=== PATIENT | female | born 1955 | race Caucasian/White ===

== ENCOUNTER 2021-02-19 00:13 | Emergency (ER) | payer MEDICARE ==
[~2021-02-19] VITALS: Ht 162.6 cm; Wt 79.8 kg
[2021-02-19] MEDS ORDERED: SODIUM CHLORIDE 0.9% 1000ML 1,000 ML IV STA (00:20)
[2021-02-19] MEDS ORDERED: ONDANSETRON HCL INJ 2MG/ML 2ML 2 MG/ML VIAL IV STA (00:20)
[2021-02-19] MEDS ORDERED: KETOROLAC TROMETHAMINE 30 MG/ML VIAL IV STA (00:20)
[2021-02-19] MEDS ORDERED: TAMSULOSIN HCL 0.4 MG CAP PO STA (00:22)
[2021-02-19 00:31] LABS: BASOPHILS % 0.5 % (0.0-1.0); EOSINOPHILS # (AUTO) 0.1 (0.0-0.4); EOSINOPHILS % 1.4 % (0.0-6.0); HEMATOCRIT 42.2 % (34.2-44.1); LYMPHOCYTES # (AUTO) 2.3 (1.0-3.2); LYMPHOCYTES % 28.6 % (18.0-39.1); MEAN CORPUSCULAR HEMOGLOBIN 31.7 pg (28-32); MEAN CORPUSCULAR HGB CONC 33.2 g/dL (31-35); MEAN CORPUSCULAR VOLUME 95.5 fL (81-99); MONOCYTES # (AUTO) 0.6 (0.2-0.8); MONOCYTES % 7.9 % (4.4-11.3); NEUTROPHILS # (AUTO) 4.8 (2.1-6.9); NEUTROPHILS % 61.1 % (38.7-80.0); PLATELET COUNT 228 x10e3/uL (140-360); RED BLOOD COUNT 4.42 x10e6/uL (3.6-5.1); RED CELL DISTRIBUTION WIDTH 11.5 % (11.7-14.4)
[2021-02-19 00:37] LABS: CLARITY,URINE SL CLOUDY (CLEAR); COLOR,URINE YELLOW (YELLOW); KETONES,URINE NEGATIVE (NEGATIVE); LEUKOCYTE ESTERASE ,URINE SMALL (NEGATIVE); NITRITE,URINE NEGATIVE (NEGATIVE); PROTEIN,URINE DIPSTICK NEGATIVE (NEGATIVE); URINE UROBILINOGEN 1 mg/dL (0.2 - 1)
[2021-02-19 00:43] LABS: BACTERIA,URINE FEW /HPF; EPITHELIAL CELLS,URINE MODERATE /LPF
[2021-02-19 00:51] LABS: ALANINE AMINOTRANSFERASE 20 IU/L (0-55); ALBUMIN 3.9 g/dL (3.5-5.0); ALBUMIN/GLOBULIN RATIO 1.3 (0.8-2.0); ALKALINE PHOSPHATASE 87 IU/L (40-150); ANION GAP 13.9 mmol/L (8-16); BLOOD UREA NITROGEN 23 mg/dL (7-26); BUN/CREATININE RATIO 25 (6-25); CALCIUM 8.9 mg/dL (8.4-10.2); CARBON DIOXIDE 24 mmol/L (22-29); CHLORIDE 107 mmol/L (98-107); CREATININE, SERUM 0.92 mg/dL (0.57-1.11); EST GLOMERULAR FILTRATION RATE > 60 ML/MIN (60-); GLUCOSE 106 mg/dL (74-118); POTASSIUM 3.9 mmol/L (3.5-5.1); SODIUM 141 mmol/L (136-145)
[2021-02-19] MEDS ORDERED: SODIUM CHLORIDE 0.9% 50ML 50 ML ONE (01:20)
[2021-02-19] MEDS ORDERED: IOPAMIDOL 370 MG/ML 200 ML INFUS..BTL INJ ONE (01:20)
[2021-02-19] MEDS ORDERED: FLOMAX0.4 MG PO (02:02)
[2021-02-19] MEDS ORDERED: MOTRIN200 MG PO (02:02)
[2021-02-19] MEDS ORDERED: CIPRO500 MG PO (02:02)
[2021-02-19 02:14] VITALS: BP 151/79
== END 2021-02-19 02:21 | disposition home or self-care (01) ==
LOC: ER 01:01
DX: M54.5 Low back pain (principal); N20.0 Calculus of kidney; K44.9 Diaphragmatic hernia without obstruction or gangrene
CPT/HCPCS: 36415; 74177; 80053; 81001; 85025; 99284; J1885; J2405; J7030; Q9967

== ENCOUNTER 2021-10-10 10:43 | Emergency (ER) | payer MEDICARE ==
[~2021-10-10] VITALS: Ht 157.5 cm; Wt 79.2 kg
[~2021-10-10 10:43] MED LIST: CIPRO500 MG PO; FLOMAX0.4 MG PO; MOTRIN200 MG PO
[2021-10-10] MEDS ORDERED: ACETAMINOPHEN 325 MG TAB PO ONE (11:15)
[2021-10-10] MEDS ORDERED: IBUPROFEN 400 MG TAB PO ONE (11:15)
[2021-10-10] MEDS ORDERED: LOSARTAN POTASS25 MG PO (11:22)
[2021-10-10] MEDS ORDERED: IBUPROFEN 400 MG TAB ONE (11:37)
[2021-10-10] MEDS ORDERED: ACETAMINOPHEN 325 MG TAB ONE (11:38)
[2021-10-10] MEDS ORDERED: DICLOFENAC SOD100 G1 TOP (12:45)
== END 2021-10-10 13:31 | disposition home or self-care (01) ==
LOC: FSED 10:49
DX: M79.605 Pain in left leg (principal); M79.604 Pain in right leg; M79.89 Other specified soft tissue disorders; I10 Essential (primary) hypertension; E78.5 Hyperlipidemia, unspecified; Z87.442 Personal history of urinary calculi
CPT/HCPCS: 93970; 99283

== ENCOUNTER 2022-11-06 11:01 | Emergency (ER) | payer MEDICARE, OTHER ==
[~2022-11-06] VITALS: Ht 160 cm; Wt 76.7 kg
[~2022-11-06 11:01] MED LIST changes: +DICLOFENAC SOD100 G1 TOP; +LOSARTAN POTASS25 MG PO
[2022-11-06] MEDS ORDERED: ACETAMINOPHEN 325 MG TAB PO ONE (11:30)
[2022-11-06] MEDS ORDERED: IBUPROFEN 400 MG TAB PO ONE (11:30)
[2022-11-06] MEDS ORDERED: IBUPROFEN 200 MG TAB ONE (12:00)
[2022-11-06] MEDS ORDERED: ACETAMINOPHEN 325 MG TAB ONE (12:00)
[2022-11-06] MEDS ORDERED: METHOCARBAMOL500 MG PO (12:28)
[2022-11-06] MEDS ORDERED: IBUPROFEN400 MG PO (12:28)
[2022-11-06] MEDS ORDERED: CEFDINIR300 MG PO (20:49)
== END 2022-11-06 12:30 | disposition home or self-care (01) ==
LOC: FSED 11:07
DX: S20.219A Contusion of unspecified front wall of thorax, initial encounter (principal); M25.512 Pain in left shoulder; M25.511 Pain in right shoulder; I10 Essential (primary) hypertension; V49.40XA Driver injured in collision with unspecified motor vehicles in traffic accident, initial encounter; Y93.89 Activity, other specified; Y99.8 Other external cause status; Z88.6 Allergy status to analgesic agent; Z79.899 Other long term (current) drug therapy
CPT/HCPCS: 71046; 99283

== ENCOUNTER 2022-11-06 19:30 | Emergency (ER) | payer MEDICARE ==
[~2022-11-06] VITALS: Ht 160 cm; Wt 76.7 kg
[~2022-11-06 19:30] MED LIST changes: +IBUPROFEN400 MG PO; +METHOCARBAMOL500 MG PO
[2022-11-06] MEDS ORDERED: SODIUM CHLORIDE 0.9% 500ML 500 ML IV STA (19:47)
[2022-11-06] MEDS ORDERED: SODIUM CHLORIDE 0.9% 500ML 500 ML ONE (20:11)
[2022-11-06] MEDS ORDERED: CEFTRIAXONE 1 GM VIAL IV ONE (20:15)
[2022-11-06] MEDS ORDERED: SODIUM CHLORIDE 0.9% 1000ML 1,000 ML ONE (20:19)
[2022-11-06] MEDS ORDERED: CEFTRIAXONE 1 GM VIAL ONE (20:19)
[2022-11-06] MEDS ORDERED: CEFDINIR300 MG PO (20:49)
== END 2022-11-06 21:38 | disposition home or self-care (01) ==
LOC: FSED 19:47
DX: R55 Syncope and collapse (principal); J06.9 Acute upper respiratory infection, unspecified; E86.0 Dehydration; N39.0 Urinary tract infection, site not specified; I10 Essential (primary) hypertension; Z88.6 Allergy status to analgesic agent; Z79.899 Other long term (current) drug therapy
CPT/HCPCS: 70450; 80053; 81003; 82553; 84484; 85025; 85379; 93005; 99284; J0696; J7030; J7040

== ENCOUNTER 2022-12-11 13:27 | Emergency (ER) | payer MEDICARE ==
[~2022-12-11] VITALS: Ht 157.5 cm; Wt 77.1 kg
[~2022-12-11 13:27] MED LIST changes: +CEFDINIR300 MG PO
[2022-12-11] MEDS ORDERED: CEFDINIR300 MG PO (18:44)
[2022-12-11 18:53] VITALS: BP 131/73
== END 2022-12-11 18:55 | disposition home or self-care (01) ==
LOC: FSED 13:58
DX: R00.2 Palpitations (principal); R60.9 Edema, unspecified; N39.0 Urinary tract infection, site not specified; I10 Essential (primary) hypertension; E78.5 Hyperlipidemia, unspecified; Z87.442 Personal history of urinary calculi
CPT/HCPCS: 71045; 80053; 81003; 82553; 83880; 84484; 85025; 93005; 93925; 93970; 99284